=== PATIENT | female | born 1990 | race Caucasian/White ===

== ENCOUNTER 2018-10-25 20:49 | Emergency (ER) | payer SELFPAY ==
--- NOTE | 2018-10-25 21:10 | UC ---
Abdominal Pain Female HPI - HPI Summary HPI Summary: 28 yo female presents with abdominal pain. She tells me that this morning she began to have pain around her belly button. Since that time the pain has become severe, she feels nauseous and has had one episode of vomiting. She mentions that she has had this pain at least 4 times in the past over the course of many years and a workup has always been negative. She says that she gets IV fluids and IV pain medication and her pain resolves. She is not able to eat due to pain. Hurts to stand up straight. LMP was 3 weeks ago and was normal. States no chance of today. Denies dysuria, vaginal bleeding/discharge, SOB, chest pain, flank pain. No hx of abdominal surgeries - History of Current Complaint Stated Complaint: ABDOMINAL PAIN, AND VOMITING Time Seen by Provider: 10/25/18 21:10 Hx Obtained From: Patient Onset/Duration: Gradual Onset Severity Initially: Moderate Severity Currently: Severe Pain Intensity: 8 Pain Scale Used: 0-10 Numeric Allergies/Adverse Reactions: Allergies Allergy/AdvReac Type Severity Reaction Status Date / Time No Known Allergies Allergy Verified 10/25/18 21:22 Home Medications: Home Medications FLUoxetine* [PROzac*] 20 mg PO DAILY 10/25/18 [History Confirmed 10/25/18] buPROPion SR TAB* [Wellbutrin SR TAB*] 300 mg PO DAILY 10/25/18 [History Confirmed 10/25/18] PMH/Surg Hx/FS Hx/Imm Hx Psychological History: Anxiety, Depression - Surgical History Surgical History: None - Family History Known Family History: Positive: None - Social History Lives: With Family Alcohol Use: Occasionally Substance Use Type: None Smoking Status (MU): Former Smoker Review of Systems All Other Systems Reviewed And Are Negative: Yes Constitutional: Positive: Negative Skin: Positive: Negative Respiratory: Positive: Negative Cardiovascular: Positive: Negative Gastrointestinal: Positive: Abdominal Pain, Vomiting, Nausea Genitourinary: Positive: Negative Neurovascular: Positive: Negative Neurological: Positive: Negative Psychological: Positive: Negative Physical Exam - Summary Physical Exam Summary: GENERAL: Crying due to pain and in position on stretcher. SKIN: No rashes, sores, lesions, or open wounds. CHEST: CTAB. No r/r/w. No accessory muscle use. Breathing comfortably and in no distress. CV: RRR. Without m/r/g. Pulses intact. Cap refill <2seconds ABDOMEN: Moderate TTP periumbilical with guarding. No CVA tenderness. Bowel sounds present NEURO: Alert. PSYCH: Age appropriate behavior. Triage Information Reviewed: Yes Vital Signs: Vital Signs: Temp Pulse Resp BP Pulse Ox 99.1 F 65 18 120/71 100 10/25/18 21:13 10/25/18 21:13 10/25/18 21:13 10/25/18 21:13 10/25/18 21:13 Vital Signs Reviewed: Yes Abd Pain Female Course/Dx - Course Course Of Treatment: Due to degree of pain and lack of appropriate testing at the - recommended pt go to the ED for further evaluation. I recommended ambulance transfer, but she declined as she had her friend drive her. - Differential Dx/Diagnosis Provider Diagnosis: Abdominal pain Discharge - Sign-Out/Discharge Documenting (check all that apply): Patient Departure All imaging exams completed and their final reports reviewed: No Studies - Discharge Plan Condition: Stable Disposition: HOME-RECOMMEND TO ED Referrals: No Primary Care Phys,NOPCP [Primary Care Provider] - Additional Instructions: Please go to the ER for further evaluation of your abdominal pain - Billing Disposition and Condition Condition: STABLE Disposition: Home-Recommend to ED
[2018-10-25 21:22] VITALS: BP 120/71
== END 2018-10-25 21:30 | disposition home health service (06) ==
LOC: UCEAST 20:49
DX: R10.33 Periumbilical pain (principal); R11.2 Nausea with vomiting, unspecified; F41.9 Anxiety disorder, unspecified; F32.9 Major depressive disorder, single episode, unspecified; Z87.891 Personal history of nicotine dependence
CPT/HCPCS: 99202; G0463

== ENCOUNTER 2018-11-17 13:09 | Emergency (ER) | payer SELFPAY ==
[2018-11-17] MEDS ORDERED: Lidocaine 1%* 5 ML VIAL ONE (13:47)
[2018-11-17] MEDS ORDERED: Lidocaine 1%* 5 ML VIAL INJ ONE (13:47)
--- NOTE | 2018-11-17 13:48 | ED ---
Laceration/Wound HPI - HPI Summary HPI Summary: Patient is a 28-year-old female who presents emergency department for laceration to right fourth digit of hand that occurred today while washing dishes. Patient states she cut finger on a chipped sofiya jar. She initially tried to glue the area but presented to the emergency department for evaluation. Patient states her tetanus immunization is up-to-date. No CVA past medical history. Symptoms are mild in severity. No current modifying factors. - History of Current Complaint Stated Complaint: NEEDS STITCHES IN FINGER PER PT Time Seen by Provider: 11/17/18 13:24 Hx Obtained From: Patient Hx Last Menstrual Period: [id number] Pain Intensity: 0 - Allergy/Home Medications Allergies/Adverse Reactions: Allergies Allergy/AdvReac Type Severity Reaction Status Date / Time No Known Allergies Allergy Verified 11/17/18 13:17 PMH/Surg Hx/FS Hx/Imm Hx Previously Healthy: Yes Infectious Disease History: No Infectious Disease History: Denies: Traveled Outside the [place] in Last 30 Days - Family History Known Family History: Positive: None - Social History Occupation: Student Lives: Dormitory/Roommates Alcohol Use: Occasionally Substance Use Type: Reports: None Smoking Status (MU): Former Smoker Review of Systems Positive: Other - laceration to right Negative: Weakness, Paresthesia, Numbness All Other Systems Reviewed And Are Negative: Yes Physical Exam Triage Information Reviewed: Yes Vital Signs On Initial Exam: Initial Vitals Temp Pulse Resp BP Pulse Ox 98.1 F 67 16 103/57 97 11/17/18 13:14 11/17/18 13:14 11/17/18 13:14 11/17/18 13:14 11/17/18 13:14 Vital Signs Reviewed: Yes Appearance: Positive: Well-Appearing - Pt. sitting on bed in NAD. Pleasant. Skin: Positive: Warm, Dry Head/Face: Positive: Normal Head/Face Inspection Eyes: Positive: Normal, EOMI, YOBANI Neck: Positive: Supple Musculoskeletal: Positive: Other - 1.5cm laceration noted along the medial aspect of 4th digit of right hand over PIP joint. Full ROM of digit. No bony tenderness. Neurological: Positive: Normal, CN Intact II-III Psychiatric: Positive: Affect/Mood Appropriate Procedures - Laceration/Wound Repair 1 Location: upper extremity - right 4th digit of hand Description: Linear Anesthesia: 1.0%, Lido Length, Depth and Shape: 1.5cm linear, full thickness Betadine Prep?: No - hibiclens Irrigated w/ Saline (ccs): 100 Laceration/Wound Explored: clean Closure: Single Layer Suture Type: Nylon Number of Sutures: 2 Layer Closure?: No Sterile Dressing Applied?: Yes Diagnostics - Vital Signs Vital Signs Temp Pulse Resp BP Pulse Ox 11/17/18 13:14 98.1 F 67 16 103/57 97 - Laboratory Lab Statement: Any lab studies that have been ordered have been reviewed, and results considered in the medical decision making process. Laceration Repair Course/Dx - Course Course Of Treatment: Patient presenting with a minor finger laceration. No bony tenderness or involvement of the tendon. Laceration was repaired as noted above. Suture removal in 7-10 days. Keep wound clean and dry. To return to the ER for redness, swelling or drainage from suture site. Patient understands and agrees with plan. - Differential Dx Differental Diagnoses: Laceration, Tendon Laceration - Clinical Impression Provider Diagnoses: Finger laceration Discharge - Sign-Out/Discharge Documenting (check all that apply): Patient Departure Patient Received Moderate/Deep Sedation with Procedure: No - Discharge Plan Condition: Good Disposition: HOME Patient Education Materials: Care For Your Stitches (ED) Referrals: Shannan Mohan [Primary Care Provider] - Additional Instructions: Follow up with PCP for suture removal in 7-10 days Keep wound clean and dry Return to ER for redness, swelling, or drainage from wound - Billing Disposition and Condition Condition: GOOD Disposition: Home
[2018-11-17 14:17] VITALS: BP 97/49
== END 2018-11-17 14:17 | disposition home or self-care (01) ==
LOC: ED 13:09
DX: S61.214A Laceration without foreign body of right ring finger without damage to nail, initial encounter (principal); W25.XXXA Contact with sharp glass, initial encounter; Y93.G1 Activity, food preparation and clean up; Y92.9 Unspecified place or not applicable; Z87.891 Personal history of nicotine dependence
CPT/HCPCS: 12001; 96374; 99282

== ENCOUNTER 2019-06-23 01:29 | Emergency (ER) | payer SELFPAY ==
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
[2019-06-23] MEDS: Ketorolac INJ* 30 MG/ML 1 ML VIAL IM ONE (03:21)
[2019-06-23 04:36] VITALS: BP 126/81
== END 2019-06-23 04:20 | disposition home or self-care (01) ==
LOC: ED 01:29
DX: M54.2 Cervicalgia (principal); V47.5XXA Car driver injured in collision with fixed or stationary object in traffic accident, initial encounter; Y92.410 Unspecified street and highway as the place of occurrence of the external cause; Z87.891 Personal history of nicotine dependence; Z87.442 Personal history of urinary calculi; Z79.899 Other long term (current) drug therapy
CPT/HCPCS: 96372; 99282; J1885